=== PATIENT | female | born 1985 | race Caucasian/White ===

== ENCOUNTER 2020-03-21 17:42 | Emergency (ER) | payer MEDICAID, OTHER ==
[~2020-03-21] VITALS: Ht 170.2 cm; Wt 127.2 kg
[2020-03-21 19:32] LABS: BILIRUBIN,URINE NEGATIVE (NEG); CLARITY,URINE CLEAR; COLOR,URINE YELLOW; NITRITE,URINE NEGATIVE (NEG); PH,URINE 5.5 (<5.0-8.0); PROTEIN,URINE NEGATIVE (NEG-TRACE); UROBILINOGEN,URINE 0.2 mg/dL (0.2 mg/dL)
--- NOTE | 2020-03-21 19:32 | PHYS DOC ---
Past Medical History Past Medical History: Depression, Other Additional Past Medical Histor: insomnia Past Surgical History: Other Additional Past Surgical Histo: (R) ankle Smoking Status: Current Every Day Smoker Additional Information: pt reports "1-2" cigarettes a day Alcohol Use: None General Adult EDM: Chief Complaint: VAGINAL BLEEDING HPI: HPI: Patient is a 34 year old female who presents with complaint of vaginal bleeding and with estimated gestational age of 7 weeks, based on LMP. Patient is a A1, with 1 being a molar . Patient states that she has been having spotting for a little over a week and she is also had pressure in her pelvic region. She denies any actual cramping. She states that is just uncomfortable. She denies any fever, back pain or dysuria. She denies nausea or vomiting. [] Review of Systems: Review of Systems: Constitutional: Denies fever or chills. [] Respiratory: Denies cough or shortness of breath. [] Cardiovascular: Denies chest pain or edema. [] GI: Complains of lower abdominal/pelvic pressure. Denies vomiting or diarrhea. [] : Denies dysuria. Complains of vaginal bleeding. [] Musculoskeletal: Denies back pain or joint pain. [] Neurologic: Denies headache, focal weakness or sensory changes. [] A full 10 point review of systems has been reviewed and is otherwise negative. Heart Score: Risk Factors: Risk Factors: DM, Current or recent (<one month) smoker, HTN, HLP, family history of CAD, obesity. Risk Scores: Score 0 - 3: 2.5% MACE over next 6 weeks - Discharge Home Score 4 - 6: 20.3% MACE over next 6 weeks - Admit for Clinical Observation Score 7 - 10: 72.7% MACE over next 6 weeks - Early Invasive Strategies Allergies: Allergies: Allergies Coded Allergies Type Severity Reaction Last Updated Verified No Known Drug Allergies 10/09/13 No Physical Exam: PE: Constitutional: Well developed, well nourished, no acute distress, non-toxic appearance. [] HENT: Normocephalic, atraumatic, bilateral external ears normal, oropharynx moist, no oral exudates, nose normal. [] Eyes: PERRLA, EOMI, conjunctiva normal, no discharge. [] Neck: Supple with no JVD or lymphadenopathy. [] Cardiovascular: Regular rate and rhythm [] Lungs & Thorax: Bilateral breath sounds clear to auscultation [] Abdomen: Bowel sounds normal, soft, no tenderness. [] Skin: Warm, dry, no erythema, no rash. [] Extremities: No tenderness, no cyanosis, no clubbing, ROM intact, no edema. [] Neurologic: Alert and oriented X 3, no focal deficits noted. [] Current Patient Data: Labs: Laboratory Tests Test 03/21/20 18:21 POC Urine HCG, Qualitative Hcg positive (Negative) Vital Signs: Vital Signs Date Time Temp Pulse Resp B/P (MAP) Pulse Ox O2 Delivery O2 Flow Rate FiO2 03/21/20 18:15 97.8 78 20 148/68 (94) 98 Room Air 97.8 EKG: EKG: [] Radiology/Procedures: Radiology/Procedures: [] Impression: PROCEDURE: OB TRANSVAG Exam: Ultrasound pelvis Indication: with vaginal bleeding Technique: Real-time grayscale and color Doppler images of the pelvis were obtained by the department highway patrol officer. Comparisons: None FINDINGS: Uterus measures 11 x 6.7 x 5.6 cm. Within the endometrium there is a oval-shaped hypoechoic structure with internal hypoechoic structure. No heart rate is identified. Right ovary measures 2.7 x 1.8 x 1.6 cm. Left ovary measures 1.7 x 2.6 x 1.5 cm. Vascular flow is identified within the ovaries bilaterally. No free fluid. IMPRESSION: Question irregularly shaped gestational sac with internal pole. Findings are suspicious for failed . No heart rate is identified. Recommend correlation with serial beta hCG measurements and short-term follow-up ultrasound. Electronically signed by: Angel Alvarez MD (03/21/2020 9:15 PM) [id number] Course & Med Decision Making: Course & Med Decision Making Pertinent Labs and Imaging studies reviewed. (See chart for details) [] Dragon Disclaimer: Dragon Disclaimer: This electronic medical record was generated, in whole or in part, using a voice recognition dictation system. Departure Departure Impression: Primary Impression: Abdominal pain affecting Additional Impression: Miscarriage Disposition: 01 HOME, SELF-CARE Condition: STABLE Referrals: MEHRAN HELMS (PCP) Patient Instructions: Abdominal Pain During , Incomplete Miscarriage, Threatened Miscarriage Additional Instructions: Follow-up with your HAND PRESSER in the next 48 to 72 hours. Radiologist has recommended serial hCGs for further monitoring of . Justicifation of Admission Dx: Justifications for Admission: Justification of Admission Dx: N/A SUNDAY BLACKBURN Jr. DO Mar 21, 2020 19:32
[2020-03-21 19:45] LABS: BACTERIA,URINE 0 /HPF (0-FEW); RBC,URINE 0 /HPF (0-2); SQUAMOUS EPITHELIAL CELL,UR OCC /LPF; WBC,URINE 0 /HPF (0-4)
[2020-03-21 20:02] LABS: BASO # 0.1 x10^3/uL (0.0-0.2); BASO % 1 % (0-3); EOS # 0.1 x10^3/uL (0.0-0.7); EOS % 1 % (0-3); HEMATOCRIT 37.7 % (36.0-47.0); LYMPH # 1.5 x10^3/uL (1.0-4.8); LYMPH % 24 % (24-48); MEAN CORPUSCULAR HEMOGLOBIN 32 pg (25-35); MEAN CORPUSCULAR HGB CONC 35 g/dL (31-37); MEAN CORPUSCULAR VOLUME 94 fL (79-100); MONO # 0.5 x10^3/uL (0.0-1.1); MONO % 8 % (0-9); NEUT % 65 % (31-73); PLATELET COUNT 282 x10^3/uL (140-400); RED BLOOD COUNT 4.03 x10^6/uL (3.50-5.40); RED CELL DISTRIBUTION WIDTH 12.8 % (11.5-14.5); WHITE BLOOD COUNT 6.2 x10^3/uL (4.0-11.0)
[2020-03-21 20:47] LABS: CALCIUM 8.5 mg/dL (8.5-10.1); CREATININE 0.9 mg/dL (0.6-1.0); GFR 71.3; POTASSIUM 3.6 mmol/L (3.5-5.1)
[2020-03-21 20:52] LABS: ALBUMIN 3.5 g/dL (3.4-5.0); ALBUMIN/GLOBULIN RATIO 1.1 (1.0-1.7); TOTAL BILIRUBIN 0.3 mg/dL (0.2-1.0); TOTAL PROTEIN 6.8 g/dL (6.4-8.2)
--- NOTE | 2020-03-21 21:18 | RAD ---
Exam: Ultrasound pelvis Indication: with vaginal bleeding Technique: Real-time grayscale and color Doppler images of the pelvis were obtained by the department metalworking instructor. Comparisons: None FINDINGS: Uterus measures 11 x 6.7 x 5.6 cm. Within the endometrium there is a oval-shaped hypoechoic structure with internal hypoechoic structure. No heart rate is identified. Right ovary measures 2.7 x 1.8 x 1.6 cm. Left ovary measures 1.7 x 2.6 x 1.5 cm. Vascular flow is identified within the ovaries bilaterally. No free fluid. IMPRESSION: Question irregularly shaped gestational sac with internal pole. Findings are suspicious for failed . No heart rate is identified. Recommend correlation with serial beta hCG measurements and short-term follow-up ultrasound. Electronically signed by: Angel Alvarez MD (03/21/2020 9:15 PM) [id number]
[2020-03-21 22:00] VITALS: BP 128/66
== END 2020-03-21 22:13 | disposition home or self-care (01) ==
LOC: ER 17:42
DX: O03.9 Complete or unspecified spontaneous abortion without complication (principal); O99.331 Smoking (tobacco) complicating pregnancy, first trimester; F17.210 Nicotine dependence, cigarettes, uncomplicated; Z3A.01 Less than 8 weeks gestation of pregnancy
CPT/HCPCS: 36415; 76817; 80053; 81001; 81025; 84702; 85025; 86900; 86901; 87086; 99285-25